=== PATIENT | male | born 1975 | race Caucasian/White ===

== ENCOUNTER 2019-01-02 16:19 | Inpatient (IN) | payer MEDICAID ==
[~2019-01-02] VITALS: Ht 165.1 cm; Wt 76.4 kg
[~2019-01-02 16:19] MED LIST: ATIVAN2 MG PO; NICODERM C1 PATCH .2 TRANSDERM; PROAIR HFA8.5 GM INH
[2019-01-02 16:54] LABS: BASOPHILS 0.2 % (0-2); EOSINOPHILS 1.1 % (0-7); HEMATOCRIT 42.9 % (42.0-54.0); HEMOGLOBIN 15.9 g/dL (13.5-17.5); IMMATURE GRANULOCYTES 0.2 % (0-5); LYMPHOCYTES 40.5 % (15-50); MCH 35.1 pg (26.0-34.0); MCHC 37.1 g/dL (31.0-37.0); MCV 94.7 fL (80.0-100.0); MEAN PLATELET VOLUME 9.1 fL (7.4-10.4); MONOCYTES 13.1 % (2-11); NEUTROPHILS 44.9 % (40-80); PLATELET COUNT 113 10x3/uL (130-400); RBC 4.53 10x6/uL (4.20-6.10); RDW 12.4 % (11.5-14.5); WBC 4.4 10x3/uL (4.8-10.8)
[2019-01-02 17:11] LABS: INR 1.04 (0.85-1.17); PROTIME 13.1 SECONDS (11.6-15.0)
[2019-01-02 17:15] VITALS: BP 145/96
--- NOTE | 2019-01-02 17:16 | NUR ---
"MY WHOLE BODY HURTS"
[2019-01-02 17:19] LABS: ALKALINE PHOSPHATASE 73 U/L (46-116); ALT (SGPT) 307 U/L (10-68); BILIRUBIN - TOTAL 0.33 mg/dL (0.2-1.3); CALC OSMOLALITY 286 mosm/kg (275-300); CALCIUM 8.2 mg/dL (8.5-10.1); CARBON DIOXIDE 27.9 mmol/L (21.0-32.0); CHLORIDE - SERUM 105 mmol/L (98-107); CREATININE - SERUM 0.9 mg/dL (0.6-1.3); GLUCOSE 145 mg/dL (74-106); POTASSIUM - SERUM 3.7 mmol/L (3.5-5.1); PROTEIN - SERUM 7.8 g/dL (6.4-8.2); SODIUM 143 mmol/L (136-145); UREA NITROGEN 9 mg/dL (7-18); eGFR NON AFRICAN AMERICAN > 90 mL/min (90-120)
[2019-01-02 17:26] LABS: APPEARANCE CLEAR (CLEAR); BILIRUBIN NEGATIVE (NEGATIVE); COLOR STRAW (YELLOW); GLUCOSE 50 mg/dL (NEGATIVE); KETONE NEGATIVE (NEGATIVE); NITRITE NEGATIVE (NEGATIVE); PROTEIN NEGATIVE (NEGATIVE); SPECIFIC GRAVITY 1.015 (1.005-1.020); UROBILINOGEN NORMAL (NORMAL)
[2019-01-02 17:32] LABS: UDS - AMPHET NEGATIVE QUAL (NEGATIVE); UDS - BARB NEGATIVE QUAL (NEGATIVE); UDS - BENZO NEGATIVE QUAL (NEGATIVE); UDS - COCAINE NEGATIVE QUAL (NEGATIVE); UDS - OPIATE NEGATIVE QUAL (NEGATIVE); UDS - PCP NEGATIVE QUAL (NEGATIVE); UDS - THC NEGATIVE QUAL (NEGATIVE)
[2019-01-02 17:42] LABS: CREATINE KINASE 504 UL (21-232); LIPASE 753 U/L (73-393); MAGNESIUM - SERUM 2.2 mg/dL (1.8-2.4); PRO BNP 11 pg/mL (0-125); THYROID STIMULATING HORMONE 0.52 uIU/mL (0.36-3.74)
[2019-01-02 17:43] LABS: TROPONIN-I < 0.017 ng/mL (0.000-0.060)
[2019-01-02 17:56] VITALS: BP 138/90
--- NOTE | 2019-01-02 17:57 | NUR ---
TREMORS RESOLVED. PT RESTING COMFORTABLY IN BED. CONT TO C/O "WHOLE BODY PAIN"
[2019-01-02 18:22] LABS: CKMB 3.1 U/L (0.0-3.6)
[2019-01-02 18:49] VITALS: BP 147/86
--- NOTE | 2019-01-02 19:09 | NUR ---
BS REPORT TO WILLIAM ROSE AND WILLIAM POON BY SBAR FORMAT
[2019-01-02 23:16] VITALS: BP 156/106; Ht 165.1 cm; Wt 76.4 kg
[2019-01-02 23:39] LABS: CKMB 2.3 U/L (0.0-3.6); CREATINE KINASE 412 UL (21-232)
[2019-01-02 23:40] LABS: TROPONIN-I < 0.017 ng/mL (0.000-0.060)
[2019-01-03 04:30] VITALS: BP 127/84
[2019-01-03 05:19] LABS: BASOPHILS 0.3 % (0-2); EOSINOPHILS 1.5 % (0-7); HEMATOCRIT 39.2 % (42.0-54.0); IMMATURE GRANULOCYTES 0.3 % (0-5); LYMPHOCYTES 44.3 % (15-50); MCH 34.4 pg (26.0-34.0); MCHC 35.7 g/dL (31.0-37.0); MCV 96.3 fL (80.0-100.0); MEAN PLATELET VOLUME 9.5 fL (7.4-10.4); MONOCYTES 13.9 % (2-11); NEUTROPHILS 39.7 % (40-80); PLATELET COUNT 94 10x3/uL (130-400); RBC 4.07 10x6/uL (4.20-6.10); RDW 12.6 % (11.5-14.5)
[2019-01-03 05:22] LABS: WBC 3.2 10x3/uL (4.8-10.8)
[2019-01-03 05:44] LABS: PLATELET ESTIMATE DECREASED
[2019-01-03 06:09] LABS: ALBUMIN 3.4 g/dL (3.4-5.0); ALKALINE PHOSPHATASE 47 U/L (46-116); ALT (SGPT) 254 U/L (10-68); BILIRUBIN - TOTAL 0.56 mg/dL (0.2-1.3); CALC OSMOLALITY 285 mosm/kg (275-300); CALCIUM 7.2 mg/dL (8.5-10.1); CARBON DIOXIDE 26.8 mmol/L (21.0-32.0); CHLORIDE - SERUM 107 mmol/L (98-107); CKMB 1.6 U/L (0.0-3.6); CREATINE KINASE 355 UL (21-232); CREATININE - SERUM 0.7 mg/dL (0.6-1.3); GLUCOSE 118 mg/dL (74-106); LIPASE 454 U/L (73-393); MAGNESIUM - SERUM 2.4 mg/dL (1.8-2.4); PHOSPHOROUS 3.5 mg/dL (2.5-4.9); POTASSIUM - SERUM 3.5 mmol/L (3.5-5.1); PROTEIN - SERUM 6.7 g/dL (6.4-8.2); SODIUM 144 mmol/L (136-145); UREA NITROGEN 7 mg/dL (7-18); eGFR NON AFRICAN AMERICAN > 90 mL/min (90-120)
[2019-01-03 06:10] LABS: TROPONIN-I < 0.017 ng/mL (0.000-0.060)
--- NOTE | 2019-01-03 06:55 | NUR ---
REPORT RECEIVED. ALERT ABLE TO VOICE NEEDS. HE DOES HAVE SOME SHAKING NOTED ON AND OFF IN HIS HANDS. IV SITE IS CLEAR BUT POSITIONAL. BBS CLEAR. ABLE TO AMBULATE WITH ASSIST TO THE BATHROOM.
[2019-01-03 07:50] VITALS: BP 150/91
--- NOTE | 2019-01-03 12:15 | MORECARE ---
CASE MANAGEMENT DISCHARGE SUMMARY PATIENT: JR BAUM UNIT: [id number] ADM DATE: 01/02/19 AGE: 43 : 75 SEX: M ROOM/BED: D.2110 AUTHOR: PIA MI PHYSICIAN: REFERRING PHYSICIAN: RAMA ANNA MD DATE OF SERVICE: 01/03/19 Discharge Plan Patient Name: JR BAUM [facility] [facility] 1975 Planned Disposition: Other Type of Facility Anticipated Discharge Date: 01/04/19 Discharge Date: Expected LOS: 2 Initial Reviewer: [email or web address] Initial Review Date: 01/03/2019 Generated: 01/03/19 1:15 pm DCPIA - Discharge Planning Initial Assessment Updated by [id number]: Mitul Laguerre on 01/03/19 12:11 pm * Is the patient Alert and Oriented? Yes * How many steps to enter\exit or inside your home? 2--I * PCP DR. EBER FISHER * Pharmacy [facility] * Preadmission Environment Home with Family * ADLs Independent * Equipment None * Other Equipment NO MEDICAL EQUIPMENT PROVIDER PREFERENCE * List name and contact numbers for known caregivers / representatives who currently or will assist patient after discharge: CRICKET ARREDONDONATALIA, FRIEND, * Verbal permission to speak to the caregivers and representatives has been obtained from the patient. Yes * Community resources currently utilized None * Please name any agencies selected above. NONE * Additional services required to return to the preadmission environment? No * Can the patient safely return to the preadmission environment? Yes * Has this patient been hospitalized within the prior 30 days at any hospital? No Patient Name: JR BAUM Page [id number] at 1215 All edits/amendments must be made on the electronic document DICTATION DATE: 01/03/19 1215 FACING SLITTER: CHIVO 01/03/19 1215 RPT#: [id number] DC DATE: STATUS: ADM IN [facility] [address] [place] [address] END OF REPORT
[2019-01-03 12:20] VITALS: BP 144/81
[2019-01-03 12:22] LABS: CKMB 1.8 U/L (0.0-3.6); CREATINE KINASE 356 UL (21-232)
[2019-01-03 12:23] LABS: TROPONIN-I < 0.017 ng/mL (0.000-0.060)
--- NOTE | 2019-01-03 12:32 | MORECARE ---
CASE MANAGEMENT DISCHARGE SUMMARY PATIENT: JR BAUM UNIT: [id number] ADM DATE: 01/02/19 AGE: 43 : 75 SEX: M ROOM/BED: D.2110 AUTHOR: SHMUEL,DOC PHYSICIAN: REFERRING PHYSICIAN: RAMA ANNA MD DATE OF SERVICE: 01/03/19 Discharge Plan Patient Name: JR BAUM Facility: [facility]:[place] : 1975 Planned Disposition: Other Type of Facility Anticipated Discharge Date: 01/04/19 Discharge Date: Expected LOS: 2 Initial Reviewer: [email or web address] Initial Review Date: 01/03/2019 Generated: 01/03/19 1:32 pm Comments DCP- Discharge Planning Updated by [id number]: Mitul Laguerre on 01/03/19 11:[address] Patient Name: JR BAUM Admission Status: ER Accout number: [id number] Admission Date: 01-02-2019 : 1975 Admission Diagnosis: Attending: RAMA EVANGELISTA Current LOS: 1 Anticipated DC Date: 01-04-2019 Planned Disposition: Other Type of Facility Primary Insurance: MEDICAID [place] PENDING PLANNED EXTERNAL PROVIDER: [facility] Discharge Planning Comments: CM RECEIVED ORDER FOR ALCOHOL INTOXICATION. CM SPOKE TO BEDSIDE NURSE WHO INFORMED CM THAT PT HAS BEEN ACCEPTED AND BED HOLDING AT [facility] IN [place], THE NIGHT NURSE HAD PROVIDED THE DAY SHIFT NURSE WITH A STICKY NOTE WITH CONTACT NUMBERS FOR [facility]. CM SPOKE TO JAMES PRATER WHO INFORMED CM THAT PT IS NOT READY TO DISCHARGE TODAY. CM MET WITH PT IN ROOM TO DISCUSS DISCHARGE PLANNING AND NEEDS. PT REPORTS LIVING AT HOME INDEPENDENTLY WITH HIS OLDER BROTHER. PT HAS NO MEDICAL EQUIPMENT AND NO OUTSIDE SERVICES ASSISTING IN THE HOME. CM DISCUSSED AVAILABILITY OF HOME HEALTH, REHAB SERVICES AND MEDICAL EQUIPMENT. PT DENIES DISCHARGE NEEDS EXCEPT WANTING TO STOP DRINKING ALCOHOL. PT REPORTS DRINKING 4- 40 OUNCE BEERS DAILY WITH SHOT OF VODKA BETWEEN BEERS. PT REPORTS HE DRANK UNTIL COMING TO HOSPITAL BUT HE WAS NOT ABLE TO DRINK MUCH BECAUSE HE FELT SICK. PT HAS BEEN DRINKING FOR YEARS AND WAS ABLE TO QUIT ABOUT 2 YEARS AGO FOR ABOUT 6 MONTHS. PT WOULD LIKE TO ENTER TREATMENT BUT DOES NOT REMEMBER SETTING UP ANY REHAB LAST NIGHT AND HAS NOT TALKED TO ANYONE AT [facility]. PT PROVIDED PERMISSION TO DISCUSS HIS CARE WITH [facility] AND PROVIDE THEM WITH ANY INFORMATION NEEDED TO GET HIM INTO THE REHAB. PT REPORTS HE HAS SOMEONE THAT CAN DRIVE HIM TO [place] FOR REHAB AT DISCHARGE. CM DISCUSSED AVAILABILITY OF REHABS IN [place] AND [facility] OUT[facility]IENT SUPPORT GROUPS AND COUNSELING. CM PROVIDED ALL INFORMATION IN WRITING AND ENCOURAGED PT TO CALL [facility] TO REQUEST TREATMENT THERE ALSO. CM CALLED [facility], , SPOKE TO ALLISON, PROVIDED PT'S INFORMATION. ALLISON REPORTS HE HAS TO CHECK PT'S "INSURANCE" AND MAKE SURE IT BOLIVAR PAY FOR REHAB SERVICES AND CALL CM BACK. CM WAITING ADMISSION DETERMINATION FROM [facility]. PT HAS BEEN INSTRUCTED TO CALL [facility] AND OTHER PROVIDERS HE MAY BE INTERESTED IN FOR ALCOHOL ADDICTION TREATMENT SERVICES. Network Security Architect: Mitul Laguerre DCPIA - Discharge Planning Initial Assessment Updated by [id number]: Mitul Laguerre on 01/03/19 12:11 pm * Is the patient Alert and Oriented? Yes * How many steps to enter\\exit or inside your home? 2--I * PCP DR. EBER FISHER * Pharmacy [facility] ON [facility] * Preadmission Environment Home with Family * ADLs Independent * Equipment None * Other Equipment NO MEDICAL EQUIPMENT PROVIDER PREFERENCE * List name and contact numbers for known caregivers / representatives who currently or will assist patient after discharge: CRICKET ARREDONDONATALIA, FRIEND, * Verbal permission to speak to the caregivers and representatives has been obtained from the patient. Yes * Community resources currently utilized None * Please name any agencies selected above. NONE * Additional services required to return to the preadmission environment? No * Can the patient safely return to the preadmission environment? Yes * Has this patient been hospitalized within the prior 30 days at any hospital? No Last DP export: 01/03/19 11:15 a Patient Name: JR BAUM Page [id number] at 1232 All edits/amendments must be made on the electronic document DICTATION DATE: 01/03/19 1232 TECHNICAL SPECIALIST CYTOLOGY: DM 01/03/19 1232 RPT#: [id number] DC DATE: STATUS: ADM IN [facility] [address] [place] [address] END OF REPORT
[2019-01-03 15:38] VITALS: BP 126/78
--- NOTE | 2019-01-03 17:13 | NUR ---
HE REQUEST REGULAR FOOD FOR SUPPER AND HAS HAD NO N/V NOTED. DIET WAS ADVANCED. HE HAS HAD LIBRIUM AND PRN ATIVAN FOR HIS SHAKING ON AND OFF. HE HAS BEEN COOPERATIVE WITH NO AGGRESSION NOTED
--- NOTE | 2019-01-03 19:17 | NUR ---
PT IN BED RESTING QUIETLY. EVEN AND UNLABORED RESPIRATIONS NOTED AT THIS TIME.
[2019-01-03 20:00] VITALS: BP 124/70
[2019-01-04] VITALS: BP 124/69
[2019-01-04 04:30] VITALS: BP 133/84
[2019-01-04 04:34] LABS: BASOPHILS 0.3 % (0-2); HEMATOCRIT 39.3 % (42.0-54.0); HEMOGLOBIN 14.2 g/dL (13.5-17.5); IMMATURE GRANULOCYTES 0.3 % (0-5); LYMPHOCYTES 35.2 % (15-50); MCH 34.5 pg (26.0-34.0); MCHC 36.1 g/dL (31.0-37.0); MCV 95.4 fL (80.0-100.0); MEAN PLATELET VOLUME 9.3 fL (7.4-10.4); MONOCYTES 11.5 % (2-11); NEUTROPHILS 51.7 % (40-80); PLATELET COUNT 88 10x3/uL (130-400); RBC 4.12 10x6/uL (4.20-6.10); RDW 12.2 % (11.5-14.5); WBC 3.9 10x3/uL (4.8-10.8)
[2019-01-04 04:53] LABS: AMYLASE - SERUM 50 U/L (25-115); CALC OSMOLALITY 276 mosm/kg (275-300); CALCIUM 7.6 mg/dL (8.5-10.1); CARBON DIOXIDE 26.8 mmol/L (21.0-32.0); CHLORIDE - SERUM 105 mmol/L (98-107); CREATININE - SERUM 0.6 mg/dL (0.6-1.3); GLUCOSE 112 mg/dL (74-106); LIPASE 331 U/L (73-393); MAGNESIUM - SERUM 2.5 mg/dL (1.8-2.4); PHOSPHOROUS 2.9 mg/dL (2.5-4.9); POTASSIUM - SERUM 3.6 mmol/L (3.5-5.1); SODIUM 139 mmol/L (136-145); UREA NITROGEN 7 mg/dL (7-18); eGFR NON AFRICAN AMERICAN > 90 mL/min (90-120)
--- NOTE | 2019-01-04 07:23 | NUR ---
PT AWAKE AND ORIENTED, SLIGHT TREMMOR NOTED. PT C/O HAVING A ROUGH NIGHT, NIGHT NURSE REPORTS PT HAS BEEN ASLEEP ALL NIGHT, WHENEVER HE HAD ENTERED THE ROOM WHICH WAS FREQUENTLY. PT STATES HE'S NOT REALLY WANTING TO GO TO [place] FOR THEIR NEW VISION PROGRAM, BUT THINK HE NEEDS TO SPEND ANOTHER NIGHT HERE TO FINISH DETOXING AND THEN WANTS TO GO HOME. INFORMED PT HE WOULD HAVE TO SPEAK TO THE DR ABOUT IT TODAY. NO SIGNS/SYMPTOMS OF ACUTE DISTRESS NOTED AT THIS TIME, BREATHS EVEN/REGULAR. CL IN REACH, SRX2.
[2019-01-04 08:10] VITALS: BP 133/88
--- NOTE | 2019-01-04 11:21 | NUR ---
PT BELIEVES HE'S BEING DISCHARGED TODAY, INFORMED HIM IT WOULDN'T BE UNTIL TOMORROW PER DRS NOTE. PT TOOK A SHOWER, HE THEN REFUSED TO PUT BACK ON TELEMTRY.
[2019-01-04 12:15] VITALS: BP 126/80
[2019-01-04 15:24] VITALS: BP 132/79
--- NOTE | 2019-01-04 16:58 | NUR ---
PT AWAKE AND ORIENTED, REPORTS NO SHAKES AT THIS TIME. IS READY TO GO HOME TOMORROW, REPORTS FEELING MUCH BETTER. NO FAMILY PRESENT AT THIS TIME. CL IN REACH, SRX2.
--- NOTE | 2019-01-04 18:33 | NUR ---
PT ASLEEP WHEN I WENT IN, WOKE EASILY TO VOICE STIMULATION. NO COMPLAINTS/CONCERNS OR QUESTIONS TO VOICE AT THIS TIME, REPORTS NO TREMMORS OR ILL FEALINGS, JUST STATES HE'S TIRED. CL IN REACH,SRX2.
--- NOTE | 2019-01-04 20:00 | NUR ---
INITIAL ROUNDS AND ASSESSMENT COMPLETED. PT VERY NERVOUS/TREMULOUS. LAST DRINK WAS ABOUT 36 HOURS AGO PER PATIENT. BANANA BAG INFUSING TO LEFT A/C AT 125ML/HR. NONLABORED RESPIRATIONS ON ROOM AIR. SPOKE WITH PATIENT ON PLANS TO GIVE HIM MEDS TO HELP HIM BE CALMER. CALL LIGHT IN REACH. MONITOR AND CPOC.
[2019-01-04 20:27] VITALS: BP 114/58
[2019-01-05 04:00] VITALS: BP 144/70
[2019-01-05 05:09] LABS: BASOPHILS 0.3 % (0-2); EOSINOPHILS 1.9 % (0-7); HEMATOCRIT 39.6 % (42.0-54.0); HEMOGLOBIN 14.1 g/dL (13.5-17.5); IMMATURE GRANULOCYTES 0.3 % (0-5); LYMPHOCYTES 35.5 % (15-50); MCHC 35.6 g/dL (31.0-37.0); MCV 95.4 fL (80.0-100.0); MEAN PLATELET VOLUME 9.7 fL (7.4-10.4); MONOCYTES 13.1 % (2-11); NEUTROPHILS 48.9 % (40-80); PLATELET COUNT 108 10x3/uL (130-400); RBC 4.15 10x6/uL (4.20-6.10); RDW 12.5 % (11.5-14.5); WBC 3.7 10x3/uL (4.8-10.8)
[2019-01-05 05:24] LABS: AMYLASE - SERUM 48 U/L (25-115); CALC OSMOLALITY 282 mosm/kg (275-300); CARBON DIOXIDE 27.2 mmol/L (21.0-32.0); CHLORIDE - SERUM 107 mmol/L (98-107); CREATININE - SERUM 0.7 mg/dL (0.6-1.3); GLUCOSE 115 mg/dL (74-106); LIPASE 267 U/L (73-393); MAGNESIUM - SERUM 2.5 mg/dL (1.8-2.4); POTASSIUM - SERUM 3.6 mmol/L (3.5-5.1); SODIUM 142 mmol/L (136-145); eGFR NON AFRICAN AMERICAN > 90 mL/min (90-120)
[2019-01-05 05:26] LABS: PHOSPHOROUS 3.7 mg/dL (2.5-4.9); UREA NITROGEN 9 mg/dL (7-18)
[2019-01-05 08:09] VITALS: BP 131/88
--- NOTE | 2019-01-05 09:31 | NUR ---
PT AWAKE AND ALERT, STATES HE'LL BE GOING HOME TODAY. NO COMPLAINTS, CONCERNS, QUESTIONS AT THIS TIME. CL IN REACH, SRX2.
[2019-01-05 11:56] VITALS: BP 121/67
--- NOTE | 2019-01-05 13:00 | NUR ---
I have reviewed this patient and I concur with the Shift Assessment completed by the Licensed Practical Nurse today this shift.
--- NOTE | 2019-01-05 15:42 | NUR ---
PT AMBULATED OUT VIA SELF. REFUSED WHEELCHAIR. NO COMPLAINTS/CONCERNS/QUESTIONS. PT STATES THANK YOU FOR ALL THE GREAT CARE.
--- NOTE | 2019-01-06 09:21 | MORECARE ---
CASE MANAGEMENT DISCHARGE SUMMARY PATIENT: JR BAUM UNIT: [id number] ADM DATE: 01/03/19 AGE: 43 : 75 SEX: M ROOM/BED: D.2110 AUTHOR: SHMUEL,DOC PHYSICIAN: REFERRING PHYSICIAN: RAMA ANNA MD DATE OF SERVICE: 01/06/19 Discharge Plan Patient Name: JR BAUM Facility: [facility]:[place] : 1975 Planned Disposition: Other Type of Facility Anticipated Discharge Date: 01/04/19 Discharge Date: 01/05/2019 Expected LOS: 1 Initial Reviewer: [email or web address] Initial Review Date: 01/03/2019 Generated: 01/06/19 10:21 am Comments DCP- Discharge Planning Updated by [id number]: Mitul Laguerre on 01/06/19 8:[address] Patient Name: JR BAUM Encounter No: [id number] : 1975 Primary Insurance: MEDICAID [place] PENDING Anticipated DC Date: 01-04-2019 Planned Disposition: HOME DCP follow-up note: CM REVIEWED CHART, PT DISCHARGED HOME 01-05-19 TO FOLLOW UP WITH [facility] FOR POSSIBLE ALCOHOL ABUSE TREATMENT SERVICES. TALI Hayes DCP- Discharge Planning Updated by [id number]: Mitul Laguerre on 01/03/19 11:[address] Patient Name: JR BAUM Admission Status: ER Accout number: [id number] Admission Date: 01-02-2019 : 1975 Admission Diagnosis: Attending: RAMA EVANGELISTA Current LOS: 1 Anticipated DC Date: 01-04-2019 Planned Disposition: Other Type of Facility Primary Insurance: MEDICAID [place] PENDING PLANNED EXTERNAL PROVIDER: [facility] [[email or web address]] Discharge Planning Comments: CM RECEIVED ORDER FOR ALCOHOL INTOXICATION. CM SPOKE TO BEDSIDE NURSE WHO INFORMED CM THAT PT HAS BEEN ACCEPTED AND BED HOLDING AT [facility] IN [place], THE NIGHT NURSE HAD PROVIDED THE DAY SHIFT NURSE WITH A STICKY NOTE WITH CONTACT NUMBERS FOR [facility]. CM SPOKE TO JAMES PRATER WHO INFORMED CM THAT PT IS NOT READY TO DISCHARGE TODAY. CM MET WITH PT IN ROOM TO DISCUSS DISCHARGE PLANNING AND NEEDS. PT REPORTS LIVING AT HOME INDEPENDENTLY WITH HIS OLDER BROTHER. PT HAS NO MEDICAL EQUIPMENT AND NO OUTSIDE SERVICES ASSISTING IN THE HOME. CM DISCUSSED AVAILABILITY OF HOME HEALTH, REHAB SERVICES AND MEDICAL EQUIPMENT. PT DENIES DISCHARGE NEEDS EXCEPT WANTING TO STOP DRINKING ALCOHOL. PT REPORTS DRINKING 4- 40 OUNCE BEERS DAILY WITH SHOT OF VODKA BETWEEN BEERS. PT REPORTS HE DRANK UNTIL COMING TO HOSPITAL BUT HE WAS NOT ABLE TO DRINK MUCH BECAUSE HE FELT SICK. PT HAS BEEN DRINKING FOR YEARS AND WAS ABLE TO QUIT ABOUT 2 YEARS AGO FOR ABOUT 6 MONTHS. PT WOULD LIKE TO ENTER TREATMENT BUT DOES NOT REMEMBER SETTING UP ANY REHAB LAST NIGHT AND HAS NOT TALKED TO ANYONE AT [facility]. PT PROVIDED PERMISSION TO DISCUSS HIS CARE WITH [facility] AND PROVIDE THEM WITH ANY INFORMATION NEEDED TO GET HIM INTO THE REHAB. PT REPORTS HE HAS SOMEONE THAT CAN DRIVE HIM TO [place] FOR REHAB AT DISCHARGE. CM DISCUSSED AVAILABILITY OF REHABS IN [place] AND [facility] SUPPORT GROUPS AND COUNSELING. CM PROVIDED ALL INFORMATION IN WRITING AND ENCOURAGED PT TO CALL [facility] TO REQUEST TREATMENT THERE ALSO. [facility], , SPOKE TO ALLISON, PROVIDED PT'S INFORMATION. ALLISON REPORTS HE HAS TO CHECK PT'S "INSURANCE" AND MAKE SURE IT BOLIVAR PAY FOR REHAB SERVICES AND CALL CM BACK. CM WAITING ADMISSION DETERMINATION FROM [facility]. PT HAS BEEN INSTRUCTED TO CALL [facility] AND OTHER PROVIDERS HE MAY BE INTERESTED IN FOR ALCOHOL ADDICTION TREATMENT SERVICES. Manager Safe: Mitul Laguerre DCPIA - Discharge Planning Initial Assessment Updated by [id number]: Mitul Laguerre on 01/03/19 12:11 pm * Is the patient Alert and Oriented? Yes * How many steps to enter\\exit or inside your home? 2-0 -I * PCP DR. EBER FISHER * Pharmacy [facility] [address] * Preadmission Environment Home with Family * ADLs Independent * Equipment None * Other Equipment NO MEDICAL EQUIPMENT PROVIDER PREFERENCE * List name and contact numbers for known caregivers / representatives who currently or will assist patient after discharge: CRICKET CASTILLO, FRIEND, * Verbal permission to speak to the caregivers and representatives has been obtained from the patient. Yes * Community resources currently utilized None * Please name any agencies selected above. NONE * Additional services required to return to the preadmission environment? No * Can the patient safely return to the preadmission environment? Yes * Has this patient been hospitalized within the prior 30 days at any hospital? No Last DP export: 01/03/19 11:32 a Patient Name: JR BAUM Page [phone] at 0921 All edits/amendments must be made on the electronic document DICTATION DATE: 01/06/19920 SEMI CONDUCTOR ASSEMBLER: CHIVO 01/06/19920 RPT#: [id number] DC DATE:01/05/19 STATUS: DIS IN [facility] [address] [place] [address] END OF REPORT
== END 2019-01-05 15:43 | disposition home or self-care (01) | DRG 439 ==
LOC: D.ER 16:19 → OBSVTIME 19:09 → D.M2 19:09
PROVIDERS: Family Medicine; ADMIT Family Medicine; ATTEND Family Medicine
DX: K85.20 Alcohol induced acute pancreatitis without necrosis or infection (principal); F10.239 Alcohol dependence with withdrawal, unspecified; F17.213 Nicotine dependence, cigarettes, with withdrawal; E86.0 Dehydration; J45.909 Unspecified asthma, uncomplicated; R00.0 Tachycardia, unspecified

== ENCOUNTER 2020-10-25 06:45 | Inpatient (IN) | payer OTHER ==
[~2020-10-25] VITALS: Ht 165.1 cm; Wt 84.1 kg
[2020-10-25] VITALS (15 sets, daily range): BP systolic 119–170; BP diastolic 71–96
[2020-10-25 07:14] LABS: BASOPHILS 0.2 % (0-2); EOSINOPHILS 0.5 % (0-7); HEMATOCRIT 45.7 % (42.0-54.0); HEMOGLOBIN 16.4 g/dL (13.5-17.5); IMMATURE GRANULOCYTES 0.3 % (0-5); LYMPHOCYTE ABS# 1.15 10x3/uL (1.32-3.57); LYMPHOCYTES 17.9 % (15-50); MCH 34.4 pg (26.0-34.0); MCHC 35.9 g/dL (31.0-37.0); MCV 95.8 fL (80.0-100.0); MEAN PLATELET VOLUME 9.4 fL (7.4-10.4); MONOCYTES 5.9 % (2-11); NEUTROPHIL ABS# 4.83 10x3/uL (1.78-5.38); NEUTROPHILS 75.2 % (40-80); RBC 4.77 10x6/uL (4.20-6.10); RDW 11.9 % (11.5-14.5); WBC 6.4 10x3/uL (4.8-10.8)
[2020-10-25 07:16] LABS: CALC OSMOLALITY 282 mosm/kg (275-300); CALCIUM 9.3 mg/dL (8.5-10.1); CARBON DIOXIDE 21.2 mmol/L (21.0-32.0); CHLORIDE - SERUM 103 mmol/L (98-107); CREATININE - SERUM 0.9 mg/dL (0.6-1.3); GLUCOSE 160 mg/dL (74-106); POTASSIUM - SERUM 3.8 mmol/L (3.5-5.1); SODIUM 141 mmol/L (136-145); UREA NITROGEN 10 mg/dL (7-18); eGFR NON AFRICAN AMERICAN > 90 mL/min (90-120)
[2020-10-25 07:21] LABS: ALKALINE PHOSPHATASE 50 U/L (30-120); ALT (SGPT) 117 U/L (10-68); MAGNESIUM - SERUM 1.8 mg/dL (1.8-2.4); PROTEIN - SERUM 7.7 g/dL (6.4-8.2)
[2020-10-25 07:28] LABS: PLATELET COUNT 207 10x3/uL (130-400)
[2020-10-25 09:22] LABS: BILIRUBIN NEGATIVE (NEGATIVE); KETONE SMALL mg/dL (NEGATIVE); NITRITE NEGATIVE (NEGATIVE); UROBILINOGEN NORMAL mg/dL (< 2)
[2020-10-25 09:27] LABS: UDS - AMPHET NEGATIVE QUAL (NEGATIVE); UDS - BARB NEGATIVE QUAL (NEGATIVE); UDS - BENZO NEGATIVE QUAL (NEGATIVE); UDS - COCAINE NEGATIVE QUAL (NEGATIVE); UDS - OPIATE NEGATIVE QUAL (NEGATIVE); UDS - PCP NEGATIVE QUAL (NEGATIVE); UDS - THC NEGATIVE QUAL (NEGATIVE)
[2020-10-25 13:04] LABS: INR 1.06 (0.85-1.17); PROTIME 12.8 SECONDS (11.6-15.0)
[2020-10-26] VITALS (12 sets, daily range): BP systolic 115–154; BP diastolic 65–107; Ht 165.1 cm; Wt 84.1 kg
--- NOTE | 2020-10-26 01:23 | NUR ---
RESTING COMFORTABLY.AWAKENS EASILY TO VERBAL STIMULI.SLIGHT TREMORS COMPLAINT PRIOR TO BEDTIME LIBRIUM DOSE. IMPROVED WITH MEDS
[2020-10-26 06:04] LABS: BASOPHILS 0.4 % (0-2); EOSINOPHILS 1.9 % (0-7); HEMATOCRIT 45.7 % (42.0-54.0); HEMOGLOBIN 16.1 g/dL (13.5-17.5); LYMPHOCYTES 22.2 % (15-50); MCH 34.3 pg (26.0-34.0); MCHC 35.2 g/dL (31.0-37.0); MCV 97.3 fL (80.0-100.0); MEAN PLATELET VOLUME 7.5 fL (7.4-10.4); MONOCYTES 8.8 % (2-11); NEUTROPHILS 66.7 % (40-80); PLATELET COUNT 222 10x3/uL (130-400); RBC 4.69 10x6/uL (4.20-6.10); RDW 12.5 % (11.5-14.5); WBC 6.2 10x3/uL (4.8-10.8)
[2020-10-26 06:45] LABS: ALBUMIN 3.4 g/dL (3.4-5.0); ALKALINE PHOSPHATASE 47 U/L (30-120); ALT (SGPT) 92 U/L (10-68); BILIRUBIN - TOTAL 1.47 mg/dL (0.2-1.3); CALC OSMOLALITY 274 mosm/kg (275-300); CALCIUM 8.7 mg/dL (8.5-10.1); CARBON DIOXIDE 23.6 mmol/L (21.0-32.0); CHLORIDE - SERUM 103 mmol/L (98-107); CREATININE - SERUM 0.8 mg/dL (0.6-1.3); GLUCOSE 135 mg/dL (74-106); SODIUM 137 mmol/L (136-145); UREA NITROGEN 9 mg/dL (7-18); eGFR NON AFRICAN AMERICAN > 90 mL/min (90-120)
--- NOTE | 2020-10-26 07:50 | NUR ---
PATIENT UP TO BATHROOM FOR SPONGE BATH, SHAVE PER SELF. PAPER SCRUBS GIVEN FOR COMFORT. PATIENT IS ALERT AND ORIENTED. NO EVIDENCE OF TREMORS. CLEAR LIQUID DIET GIVEN.
--- NOTE | 2020-10-26 10:46 | NUR ---
DISCUSSED REHAB PLANS FOLLOWING HOSPITAL DISCHARGE. PATIENT STATES HE WILL BE GOING TO [id number] AND SHE WILL HELP HIM LOCATE A REHAB AND WILL HELP HIS STAY OFF ALCOHOL. STATES "SHE'S REALLY STRICT ON THAT".
--- NOTE | 2020-10-26 11:39 | NUR ---
PATIENT LYING QUIETLY IN BED. NO C/O AGITATION. NO TREMORS SEEN. VSS.
--- NOTE | 2020-10-26 12:22 | NUR ---
REPORT GIVEN TO WILLIAM CALLOWAY, MED/SURG.
--- NOTE | 2020-10-26 13:16 | NUR ---
ADMITTED TO FLOOR. NO COMPLAINTS AT PRESENT. STATES IN PAIN BUT IS RUNNING AROUND ROOM AT PRESENT. ATTACHED TO MONITOR SHOWING SR PECK 77. CALL LIGHT IN REACH.
--- NOTE | 2020-10-26 13:28 | NUR ---
REFUSING SCDS DUE TO CONSTANTLY BEING UP AND AROUND IN ROOM. CURRENTLY ON LOVENOX
--- NOTE | 2020-10-26 19:45 | NUR ---
RECEIVED BEDSIDE REPORT. PT LAYING IN BED A&O X4. PIV TO LEFT HAND PATENT AND INFUSING, NO REDNESS OR SWELLING. TELEMETRY IN PLACE, SB 48. EDUCATED PT ON CL AND NEEDS, VERBALIZED UNDERSTANDING. BED LOW, CL IN REACH.
[2020-10-27] VITALS: BP 117/77
[2020-10-27 04:00] VITALS: BP 149/86
[2020-10-27 06:06] LABS: BASOPHILS 0.5 % (0-2); EOSINOPHILS 2.1 % (0-7); HEMATOCRIT 46.6 % (42.0-54.0); HEMOGLOBIN 16.6 g/dL (13.5-17.5); LYMPHOCYTES 33.5 % (15-50); MCH 34.6 pg (26.0-34.0); MCHC 35.7 g/dL (31.0-37.0); MEAN PLATELET VOLUME 7.8 fL (7.4-10.4); MONOCYTES 7.5 % (2-11); NEUTROPHILS 56.4 % (40-80); PLATELET COUNT 203 10x3/uL (130-400); RBC 4.81 10x6/uL (4.20-6.10); WBC 5.3 10x3/uL (4.8-10.8)
[2020-10-27 06:21] LABS: ALBUMIN 3.7 g/dL (3.4-5.0); ALKALINE PHOSPHATASE 52 U/L (30-120); ALT (SGPT) 102 U/L (10-68); BILIRUBIN - TOTAL 1.47 mg/dL (0.2-1.3); CALC OSMOLALITY 275 mosm/kg (275-300); CALCIUM 8.6 mg/dL (8.5-10.1); CARBON DIOXIDE 23.2 mmol/L (21.0-32.0); CHLORIDE - SERUM 102 mmol/L (98-107); CREATININE - SERUM 0.8 mg/dL (0.6-1.3); GLUCOSE 118 mg/dL (74-106); POTASSIUM - SERUM 3.8 mmol/L (3.5-5.1); PROTEIN - SERUM 7.5 g/dL (6.4-8.2); SODIUM 138 mmol/L (136-145); UREA NITROGEN 11 mg/dL (7-18); eGFR NON AFRICAN AMERICAN > 90 mL/min (90-120)
--- NOTE | 2020-10-27 07:46 | NUR ---
SITTING UP IN BED WITH EYES OPEN, ALERT AND ORIENTED. STATES HE IS FEELING MUCH BETTER AND WOULD LIKE TO TALK TO THE DR ABOUT NOT CONTINUING TO TAKE THE LIBRIUM AND LOVENOX DUE TO HE IS NOT SHAKING ANYMORE AND IS GETTING UP AND MOVING AROUND THE ROOM FREQUENTLY. REPORTS HE HAS ALREADY GOTTEN UP AND TAKEN A SHOWER THIS MORNING. IV LOCATED TO LEFT HAND CURRENTLY RUNNING MVI @ 25ML. NO CURRENT S/S OF DISTRESS AT THIS TIME, DENIES CURRENT NEEDS, WILL CONT TO MONITOR.
[2020-10-27 08:39] VITALS: BP 133/88
[2020-10-27 12:34] VITALS: BP 142/92
[2020-10-27] MEDS ORDERED: ATIVAN1 MG PO (15:27)
--- NOTE | 2020-10-27 17:41 | NUR ---
DC`D VIA WHEELCHAIR AND HOSPITAL STAFF, NO CONCERNS MENTIONED.
== END 2020-10-27 17:42 | disposition home or self-care (01) | DRG 897 ==
LOC: D.ER 06:45 → D.EDHOLD 17:33 → D.M2 17:33 → D.MS 17:33 → D.EDHOLD 17:59 → D.MS 10-26 11:34
PROVIDERS: Family Medicine; ADMIT Family Medicine Adult Medicine; ATTEND Family Medicine Adult Medicine
DX: F10.231 Alcohol dependence with withdrawal delirium (principal); J45.909 Unspecified asthma, uncomplicated; R74.01 Elevation of levels of liver transaminase levels

== ENCOUNTER 2020-11-03 20:21 | Emergency (ER) | payer OTHER ==
[~2020-11-03] VITALS: Ht 165.1 cm; Wt 81.8 kg
[~2020-11-03 20:21] MED LIST changes: +ATIVAN1 MG PO
[2020-11-03 20:22] VITALS: Ht 165.1 cm; Wt 81.8 kg
[2020-11-03] MEDS ORDERED: LIBRIUM 10 MG C10 MG PO (20:27)
[2020-11-04 00:46] VITALS: BP 119/56
== END 2020-11-04 00:46 | disposition home or self-care (01) ==
LOC: D.ER 20:21
DX: S93.401A Sprain of unspecified ligament of right ankle, initial encounter (principal); M25.571 Pain in right ankle and joints of right foot; J45.909 Unspecified asthma, uncomplicated; W19.XXXA Unspecified fall, initial encounter; Y93.9 Activity, unspecified; Y92.9 Unspecified place or not applicable

== ENCOUNTER 2020-11-07 16:48 | Emergency (ER) | payer OTHER ==
[~2020-11-07] VITALS: Ht 165.1 cm; Wt 77.3 kg
[~2020-11-07 16:48] MED LIST changes: +LIBRIUM 10 MG C10 MG PO
[2020-11-07 16:53] VITALS: BP 121/62; Ht 165.1 cm; Wt 77.3 kg
[2020-11-07] MEDS ORDERED: TORADOL10 MG PO (21:29)
== END 2020-11-07 21:56 | disposition home or self-care (01) ==
LOC: D.ER 16:48
DX: S93.401A Sprain of unspecified ligament of right ankle, initial encounter (principal); X58.XXXA Exposure to other specified factors, initial encounter

== ENCOUNTER 2020-12-01 11:37 | Inpatient (IN) | payer OTHER ==
[~2020-12-01] VITALS: Ht 165.1 cm; Wt 77.6 kg
[~2020-12-01 11:37] MED LIST changes: +TORADOL10 MG PO
[2020-12-01 12:00] LABS: BASOPHILS 0.7 % (0-2); EOSINOPHILS 0.8 % (0-7); HEMATOCRIT 44.6 % (42.0-54.0); HEMOGLOBIN 15.6 g/dL (13.5-17.5); LYMPHOCYTES 47.5 % (15-50); MCV 97.3 fL (80.0-100.0); MEAN PLATELET VOLUME 7.1 fL (7.4-10.4); MONOCYTES 7.1 % (2-11); NEUTROPHILS 43.9 % (40-80); PLATELET COUNT 199 10x3/uL (130-400); RBC 4.58 10x6/uL (4.20-6.10); RDW 12.9 % (11.5-14.5); WBC 5.2 10x3/uL (4.8-10.8)
[2020-12-01 12:12] LABS: CALC OSMOLALITY 290 mosm/kg (275-300); CALCIUM 8.5 mg/dL (8.5-10.1); CARBON DIOXIDE 26.2 mmol/L (21.0-32.0); CHLORIDE - SERUM 106 mmol/L (98-107); CREATININE - SERUM 0.7 mg/dL (0.6-1.3); GLUCOSE 138 mg/dL (74-106); POTASSIUM - SERUM 3.5 mmol/L (3.5-5.1); SODIUM 145 mmol/L (136-145); UREA NITROGEN 13 mg/dL (7-18); eGFR NON AFRICAN AMERICAN > 90 mL/min (90-120)
[2020-12-01 12:26] LABS: ALBUMIN 3.9 g/dL (3.4-5.0); ALKALINE PHOSPHATASE 48 U/L (30-120); ALT (SGPT) 76 U/L (10-68); AMYLASE - SERUM 41 U/L (25-115); BILIRUBIN - TOTAL 0.55 mg/dL (0.2-1.3); LIPASE 116 U/L (73-393); PROTEIN - SERUM 7.4 g/dL (6.4-8.2)
[2020-12-01 12:27] LABS: TROPONIN-I < 0.017 ng/mL (0.000-0.060)
[2020-12-01 12:59] LABS: BILIRUBIN NEGATIVE (NEGATIVE); KETONE NEGATIVE mg/dL (< 1+); NITRITE NEGATIVE (NEGATIVE); UROBILINOGEN NORMAL mg/dL (< 2)
[2020-12-01 13:06] LABS: UDS - AMPHET NEGATIVE QUAL (NEGATIVE); UDS - BARB NEGATIVE QUAL (NEGATIVE); UDS - BENZO NEGATIVE QUAL (NEGATIVE); UDS - COCAINE NEGATIVE QUAL (NEGATIVE); UDS - OPIATE NEGATIVE QUAL (NEGATIVE); UDS - PCP NEGATIVE QUAL (NEGATIVE); UDS - THC NEGATIVE QUAL (NEGATIVE)
[2020-12-01 15:18] LABS: INR 1.01 (0.85-1.17); PROTIME 12.3 SECONDS (11.6-15.0)
--- NOTE | 2020-12-01 19:16 | NUR ---
PT RESTING WITH EYES CLOSED, RR EVEN AND UNLABORED, VSS. PT AWAKES TO VERBAL STIMULI, DENIES NEEDS. CALL LIGHT IN REACH.
[2020-12-01 19:19] VITALS: BP 105/67
[2020-12-01 20:00] VITALS: BP 105/66
--- NOTE | 2020-12-01 20:18 | NUR ---
PT IV THIAMINE INFUSION FINISHED.
[2020-12-01 21:00] VITALS: BP 105/61
[2020-12-01 22:00] VITALS: BP 110/67
--- NOTE | 2020-12-01 22:24 | NUR ---
PT TIP BANDING MACHINE OPERATOR LIGHT, PT ASSISTED UP TO BEDSIDE TO USE URINAL. PT VOIDED 400ML DARK YELLOW URINE. PT ALSO C/O SHAKINESS AND REQUESTING MEDICAITON FOR IT. SEE EMAR
[2020-12-01 23:00] VITALS: BP 137/80
--- NOTE | 2020-12-01 23:26 | NUR ---
PT SUMMER COUNSELOR LIGHT REQUESTING SOMETHING TO EAT. PT GIVEN SANDWICH BOX AND WATER. PT DENIES FURTHER NEEDS. CALL LIGHT IN REACH.
[2020-12-02] VITALS (22 sets, daily range): BP systolic 97–170; BP diastolic 50–85
--- NOTE | 2020-12-02 02:57 | NUR ---
APPROX 500 ML DARK YELLOW URINE EMPTIED FROM PT URINAL. PT DENIES FURTHER NEEDS CALL LIGHT IN REACH.
--- NOTE | 2020-12-02 04:14 | NUR ---
PT GIVEN ICE WATER TO DRINK AND HEAD OF BED ADJUSTED TO LEVEL OF COMFORT. DENIES FURTHER NEEDS. CALL LIGHT IN REACH.
[2020-12-02 04:52] LABS: INR 1.08 (0.85-1.17)
[2020-12-02 04:53] LABS: BASOPHILS 0.6 % (0-2); EOSINOPHILS 1.1 % (0-7); HEMATOCRIT 44.1 % (42.0-54.0); HEMOGLOBIN 15.3 g/dL (13.5-17.5); LYMPHOCYTES 24.8 % (15-50); MCH 34.3 pg (26.0-34.0); MCHC 34.7 g/dL (31.0-37.0); MCV 98.7 fL (80.0-100.0); MEAN PLATELET VOLUME 7.3 fL (7.4-10.4); MONOCYTES 5.9 % (2-11); NEUTROPHILS 67.6 % (40-80); PLATELET COUNT 167 10x3/uL (130-400); RBC 4.47 10x6/uL (4.20-6.10); RDW 12.9 % (11.5-14.5); WBC 5.3 10x3/uL (4.8-10.8)
[2020-12-02 05:04] LABS: ALBUMIN 3.6 g/dL (3.4-5.0); ALKALINE PHOSPHATASE 48 U/L (30-120); ALT (SGPT) 67 U/L (10-68); BILIRUBIN - TOTAL 0.76 mg/dL (0.2-1.3); CALC OSMOLALITY 277 mosm/kg (275-300); CALCIUM 7.7 mg/dL (8.5-10.1); CARBON DIOXIDE 25.7 mmol/L (21.0-32.0); CHLORIDE - SERUM 105 mmol/L (98-107); CREATININE - SERUM 0.8 mg/dL (0.6-1.3); GLUCOSE 110 mg/dL (74-106); MAGNESIUM - SERUM 2.1 mg/dL (1.8-2.4); PHOSPHOROUS 2.7 mg/dL (2.5-4.9); POTASSIUM - SERUM 3.7 mmol/L (3.5-5.1); PROTEIN - SERUM 7.1 g/dL (6.4-8.2); SODIUM 140 mmol/L (136-145); eGFR NON AFRICAN AMERICAN > 90 mL/min (90-120)
[2020-12-02 05:08] LABS: UREA NITROGEN 7 mg/dL (7-18)
--- NOTE | 2020-12-02 06:18 | NUR ---
450 ML DARK YELLOW URINE EMPTIED FROM URINAL. PT DENIES NEEDS. CALL LIGHT IN REACH.
--- NOTE | 2020-12-02 12:00 | NUR ---
RELIEVING PRIMARY RN FOR LUNCH BREAK AT THIS TIME.
--- NOTE | 2020-12-02 19:15 | NUR ---
450ML DARK YELLOW URINE EMPTIED FROM URINAL. PT AWAKES TO VERBAL STIMULI, DENIES FUTHER NEEDS AT THIS TIME. CALL LIGHT IN REACH.
--- NOTE | 2020-12-02 22:25 | NUR ---
PT REQUESTING ATIVAN FOR TREMORS. SEE EMAR
--- NOTE | 2020-12-02 23:00 | NUR ---
PT BROUGHT TO FLOOR VIA WHEELCHAIR, AOX4. AMBULATED TO BED WITHOUT DIFFICULTY. DENIES PAIN OR NEEDS AT THIS TIME. IV RIGHT HAND INFUSING NS @ 125. CL IN REACH
[2020-12-03] VITALS: BP 121/65
[2020-12-03 03:37] VITALS: Ht 165.1 cm; Wt 77.6 kg
[2020-12-03 04:00] VITALS: BP 134/72
[2020-12-03 05:24] LABS: BASOPHILS 0.5 % (0-2); EOSINOPHILS 1.6 % (0-7); HEMOGLOBIN 15.1 g/dL (13.5-17.5); LYMPHOCYTES 25.2 % (15-50); MCH 34.6 pg (26.0-34.0); MEAN PLATELET VOLUME 7.4 fL (7.4-10.4); MONOCYTES 9.9 % (2-11); NEUTROPHILS 62.8 % (40-80); PLATELET COUNT 149 10x3/uL (130-400); RBC 4.36 10x6/uL (4.20-6.10); RDW 12.8 % (11.5-14.5); WBC 4.8 10x3/uL (4.8-10.8)
[2020-12-03 05:43] LABS: MCV 96.3 fL (80.0-100.0)
[2020-12-03 05:49] LABS: INR 1.16 (0.85-1.17); PROTIME 13.8 SECONDS (11.6-15.0)
[2020-12-03 06:00] LABS: ALBUMIN 3.3 g/dL (3.4-5.0); ALKALINE PHOSPHATASE 39 U/L (30-120); ALT (SGPT) 55 U/L (10-68); BILIRUBIN - TOTAL 1.53 mg/dL (0.2-1.3); CALC OSMOLALITY 278 mosm/kg (275-300); CARBON DIOXIDE 22.4 mmol/L (21.0-32.0); CHLORIDE - SERUM 105 mmol/L (98-107); CREATININE - SERUM 0.7 mg/dL (0.6-1.3); GLUCOSE 112 mg/dL (74-106); MAGNESIUM - SERUM 2.2 mg/dL (1.8-2.4); PHOSPHOROUS 2.8 mg/dL (2.5-4.9); POTASSIUM - SERUM 3.7 mmol/L (3.5-5.1); PROTEIN - SERUM 6.5 g/dL (6.4-8.2); SODIUM 140 mmol/L (136-145); eGFR NON AFRICAN AMERICAN > 90 mL/min (90-120)
[2020-12-03 06:05] LABS: UREA NITROGEN 10 mg/dL (7-18)
--- NOTE | 2020-12-03 07:46 | NUR ---
ALERT AND ORIENTED. ASSESSMENT COMPLETE. REQUESTED AND GIVEN PRN ATIVAN. DENIES FURTHER NEEDS. BED LOW. CALL CUEVAS AND PERSONAL ITEMS IN REACH. WILL CONTINUE TO MONITOR.
[2020-12-03 09:04] VITALS: BP 132/79
--- NOTE | 2020-12-03 09:15 | NUR ---
PATIENT UNHOOKED FROM IV AND TELE AND IV WRAPPED FOR SHOWER.
--- NOTE | 2020-12-03 09:18 | NUR ---
NURSE MESSAGED NOTED TO PLACE PATIENT ON TELE. PATIENT ALREADY ON TELE. ONLY REMOVED FOR SHOWER THIS AM. HAS BEEN ON TELE RUNNING SINUS RYTHING TO SINUS TACH.
--- NOTE | 2020-12-03 10:00 | NUR ---
RESTING IN BED. DENIES NEEDS. WILL CONTINUE TO MONITOR.
--- NOTE | 2020-12-03 12:01 | NUR ---
CALL TO FAMILY PER PATIENT REQUEST. CRICKET PAZ [phone]. FAMILY INFORMED OF PATIENTS LOCATION AND STATUS PER PATIENT REQUEST. PATIENT STATES."HE IS DOING BAD." MEDS PER MAR ORDERED
--- NOTE | 2020-12-03 12:31 | NUR ---
SITTING UP IN BED EATING LUNCH. DENIES NEEDS. WILL CONTINUE TO MONITOR.
[2020-12-03 12:45] VITALS: BP 159/109
[2020-12-03 13:07] VITALS: BP 117/63
--- NOTE | 2020-12-03 13:39 | NUR ---
SLEEPING. CALL CUEVAS IN REACH.
[2020-12-03 20:00] VITALS: BP 149/78
--- NOTE | 2020-12-03 20:00 | NUR ---
PT SITTING UP IN BED WITHOUT DISTRESS, AOX4. PT STATES HE JUST WOKE UP AND SLEPT ALL DAY. STATES THAT THE LIBRIUM HE WAS GIVEN EALIER IN THE DAY IS MAKING HIS BRAIN FEEL FUZZY. STATES THAT IT MAKES HIM SLEEP TOO MUCH AND DOES NOT LIKE THE WAY HIS HEAD FEELS. STATES THE ATIVAN DOES NOT DO THAT. PT REQUESTING TO NOT TAKE LIRBIUM ANYMORE. EDUCATED PT ON WHAT LIBRIUM DOES AND WHY HE HAS BEEN ORDERED TO TAKE IT BUT THAT THIS NURSE WOULD CALL NURSE PRACITIONER AND SPEAK WITH HIM ABOUT IT. CALLED ALLAN ALEXANDRE APN ABOUT LIBRIUM DOSE AND PT NOT WANTING TO TAKE SO MUCH LIBRIUM. ORDERS PER ALLAN TO CHANGE LIBRIUM BACK TO 25MG Q8H.
[2020-12-04] VITALS: BP 96/58
[2020-12-04 04:00] VITALS: BP 128/82
--- NOTE | 2020-12-04 08:00 | NUR ---
ALERT AND ORIENTED. ASSESSMENT COMPLETE. PATIENT REQUESTING SMOOTHIE. SPOKE WITH KATTY IN DIETARY WHO STATES "WE DONT USE THE SOIL TECHNOLOGIST IN [place] ON THE WEEKEND SO WE CAN'T MAKE A SMOOTHIE." WILL SPEAK WITH SIGNAL INSPECTOR. PATIENT DENIES FURTHER NEEDS. WILL CONTINUE TO MONITOR.
--- NOTE | 2020-12-04 08:49 | NUR ---
SPOKE WITH [facility] REHAB NURSE, WHO STATES WILL PLACE ORDER FOR PATIENT TO HAVE SMOOTHIE AND THAT KITCHEN HAS NO REASON NOT TO MAKE SMOOTHIE ON THE WEEKEND FOR PATIENT.
[2020-12-04 08:58] VITALS: BP 119/77
[2020-12-04 09:05] LABS: INR 1.12 (0.85-1.17); PROTIME 13.4 SECONDS (11.6-15.0)
[2020-12-04 09:20] LABS: BASOPHILS 0.5 % (0-2); EOSINOPHILS 1.7 % (0-7); HEMATOCRIT 47.7 % (42.0-54.0); HEMOGLOBIN 16.9 g/dL (13.5-17.5); LYMPHOCYTES 24.7 % (15-50); MCH 34.8 pg (26.0-34.0); MCHC 35.5 g/dL (31.0-37.0); MCV 97.9 fL (80.0-100.0); MONOCYTES 7.7 % (2-11); NEUTROPHILS 65.4 % (40-80); PLATELET COUNT 169 10x3/uL (130-400); RBC 4.88 10x6/uL (4.20-6.10)
[2020-12-04 09:34] LABS: ALKALINE PHOSPHATASE 54 U/L (30-120); BILIRUBIN - TOTAL 1.24 mg/dL (0.2-1.3); CALC OSMOLALITY 278 mosm/kg (275-300); CALCIUM 8.9 mg/dL (8.5-10.1); CARBON DIOXIDE 27.1 mmol/L (21.0-32.0); CHLORIDE - SERUM 102 mmol/L (98-107); CREATININE - SERUM 0.8 mg/dL (0.6-1.3); GLUCOSE 99 mg/dL (74-106); MAGNESIUM - SERUM 2.2 mg/dL (1.8-2.4); PHOSPHOROUS 2.6 mg/dL (2.5-4.9); SODIUM 141 mmol/L (136-145); UREA NITROGEN 8 mg/dL (7-18); eGFR NON AFRICAN AMERICAN > 90 mL/min (90-120)
[2020-12-04 09:50] LABS: ALT (SGPT) 83 U/L (10-68); POTASSIUM - SERUM 3.1 mmol/L (3.5-5.1)
--- NOTE | 2020-12-04 12:45 | NUR ---
RESTING IN BED. DENIES NEEDS. CALL CUEVAS IN REACH. WILL CONTINUE TO MONITOR.
[2020-12-04 13:38] VITALS: BP 135/81
--- NOTE | 2020-12-04 14:02 | NUR ---
PATIENT TOOK SHOWER PER REQUEST. LINENS CHANGED. FLOORS CLEANED BY HOUSEKEEPING PER REQUEST. DENIES FURTHER NEEDS. WILL CONTINUE TO MONITOR.
--- NOTE | 2020-12-04 16:56 | NUR ---
PATIENT SLEEPING. CALL CUEVAS IN REACH.
[2020-12-04 17:47] VITALS: BP 121/73
--- NOTE | 2020-12-04 18:44 | NUR ---
PATIENT RESTING IN BED. REQUESTED AND GIVEN PRN ATIVAN. DENIES FURTHER NEEDS. CALL CUEVAS IN REACH.
--- NOTE | 2020-12-04 19:00 | NUR ---
BEDSIDE REPORT RECEIVED AND CARE OF PT ASSUMED. PT LYING ON RIGHT SIDE WITH EYES CLOSED. IV TO LEFT HAND PATENT WITH NS INFUSING AT 125 ML/HR. TELEMETRY IN PLACE PER ORDER. SCD'S IN PLACE ON BLE. WILL MONITOR FOR NEEDS.
--- NOTE | 2020-12-04 20:37 | NUR ---
HS MEDICATIONS GIVEN TO INCLUDE ATIVAN PER REQUEST FOR TREMORS. WILL CONTINUE TO MONITOR CLOSELY.
--- NOTE | 2020-12-05 00:08 | NUR ---
GAVE ATIVAN PER REQUEST FOR ANXIETY / TREMORS. WILL CONTINUE TO MONITOR CLOSELY FOR NEEDS.
--- NOTE | 2020-12-05 02:23 | NUR ---
PT C/O IV HURTING. REMOVED WITH CATHETER TIP INTACT. RE-SITED IV TO RIGHT AC USING 20 GUAGE CATHETER IN ONE STICK. IV FLUIDS RE-STARTED.
--- NOTE | 2020-12-05 02:24 | NUR ---
PT UP DOING SPONGE BATH AND ORAL CARE.
--- NOTE | 2020-12-05 03:30 | NUR ---
PT STILL AMBULATING AROUND ROOM....SHAVING HEAD AT THIS TIME.
[2020-12-05 05:46] LABS: BASOPHILS 0.3 % (0-2); EOSINOPHILS 1.9 % (0-7); HEMATOCRIT 44.3 % (42.0-54.0); HEMOGLOBIN 15.5 g/dL (13.5-17.5); LYMPHOCYTES 21.1 % (15-50); MCH 34.1 pg (26.0-34.0); MCHC 34.9 g/dL (31.0-37.0); MCV 97.7 fL (80.0-100.0); MEAN PLATELET VOLUME 7.8 fL (7.4-10.4); MONOCYTES 7.4 % (2-11); NEUTROPHILS 69.3 % (40-80); PLATELET COUNT 163 10x3/uL (130-400); RBC 4.54 10x6/uL (4.20-6.10); RDW 12.8 % (11.5-14.5); WBC 6.4 10x3/uL (4.8-10.8)
[2020-12-05 05:50] LABS: INR 1.15 (0.85-1.17); PROTIME 13.7 SECONDS (11.6-15.0)
[2020-12-05 05:54] LABS: ALBUMIN 3.6 g/dL (3.4-5.0); ALKALINE PHOSPHATASE 49 U/L (30-120); ALT (SGPT) 79 U/L (10-68); BILIRUBIN - TOTAL 0.92 mg/dL (0.2-1.3); CALC OSMOLALITY 276 mosm/kg (275-300); CALCIUM 8.6 mg/dL (8.5-10.1); CHLORIDE - SERUM 103 mmol/L (98-107); CREATININE - SERUM 0.9 mg/dL (0.6-1.3); GLUCOSE 89 mg/dL (74-106); MAGNESIUM - SERUM 1.9 mg/dL (1.8-2.4); POTASSIUM - SERUM 3.1 mmol/L (3.5-5.1); PROTEIN - SERUM 7.1 g/dL (6.4-8.2); SODIUM 140 mmol/L (136-145); UREA NITROGEN 9 mg/dL (7-18); eGFR NON AFRICAN AMERICAN > 90 mL/min (90-120)
[2020-12-05 05:58] LABS: PHOSPHOROUS 3.6 mg/dL (2.5-4.9)
[2020-12-05 08:00] VITALS: BP 138/91
[2020-12-05 12:29] VITALS: BP 116/66
[2020-12-05 16:15] VITALS: BP 108/70
--- NOTE | 2020-12-05 19:00 | NUR ---
BEDSIDE REPORT RECEIVED AND CARE OF PT ASSUMED. PT LYING IN LOW CHARLES'S POSITION WATCHING TV. IV TO RIGHT AC PATENT WITH NS INFUSING AT 125 ML/HR. TELEMETRY IN PLACE PER ORDER. WILL MONITOR FOR NEEDS.
--- NOTE | 2020-12-05 20:05 | NUR ---
HS MEDICATIONS GIVEN TO INCLUDE ATIVAN 1 MG IVP PER REQUEST FOR ANXIETY/ TREMORS. WILL CONTINUE TO MONITOR FOR NEEDS.
--- NOTE | 2020-12-05 20:30 | NUR ---
GAVE X2 ORANGE SHEBERT FOR HS SNACK. WILL CONTINUE TO MONITOR FOR NEEDS.
--- NOTE | 2020-12-06 04:24 | NUR ---
PT WANTS TO SHOWER...SALINE LOCKED IV. CALLED EMAIL MARKETING EXECUTIVE TO INFORM THAT PT WOULD BE OFF FOR A WHILE.
[2020-12-06 05:50] LABS: BASOPHILS 0.2 % (0-2); EOSINOPHILS 2.6 % (0-7); HEMOGLOBIN 16.3 g/dL (13.5-17.5); LYMPHOCYTES 29.8 % (15-50); MCH 34.6 pg (26.0-34.0); MCHC 35.5 g/dL (31.0-37.0); MCV 97.3 fL (80.0-100.0); MEAN PLATELET VOLUME 7.8 fL (7.4-10.4); MONOCYTES 7.2 % (2-11); NEUTROPHILS 60.2 % (40-80); PLATELET COUNT 173 10x3/uL (130-400); RBC 4.73 10x6/uL (4.20-6.10); RDW 12.8 % (11.5-14.5); WBC 6.1 10x3/uL (4.8-10.8)
[2020-12-06 05:59] LABS: ALBUMIN 3.9 g/dL (3.4-5.0); ALKALINE PHOSPHATASE 57 U/L (30-120); ALT (SGPT) 83 U/L (10-68); BILIRUBIN - TOTAL 0.74 mg/dL (0.2-1.3); CALC OSMOLALITY 277 mosm/kg (275-300); CALCIUM 8.9 mg/dL (8.5-10.1); CARBON DIOXIDE 27.4 mmol/L (21.0-32.0); CHLORIDE - SERUM 103 mmol/L (98-107); CREATININE - SERUM 0.7 mg/dL (0.6-1.3); GLUCOSE 113 mg/dL (74-106); MAGNESIUM - SERUM 1.9 mg/dL (1.8-2.4); PROTEIN - SERUM 7.7 g/dL (6.4-8.2); SODIUM 140 mmol/L (136-145); UREA NITROGEN 7 mg/dL (7-18); eGFR NON AFRICAN AMERICAN > 90 mL/min (90-120)
[2020-12-06 06:06] LABS: POTASSIUM - SERUM 3.6 mmol/L (3.5-5.1)
--- NOTE | 2020-12-06 07:21 | NUR ---
RECIEVED BEDSIDE REPORT. BED LOW POSITION, CALL LIGHT IN REACH. DENIES NEEDS AT THIS TIME. FREE FROM SIGNS OF DISTRESS. WILL CONTINUE TO MONITOR.
[2020-12-06 07:28] LABS: INR 1.04 (0.85-1.17); PROTIME 12.6 SECONDS (11.6-15.0)
[2020-12-06 10:27] VITALS: BP 132/78
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
--- NOTE | 2020-12-06 15:08 | NUR ---
DISCHARGE PAPERS COMPLETE. DENIES FURTHER QUESTIONS. IV CATH REMOVED, CATH TIP INTACT. GATHERED BELONGINGS LEFT UNIT VIA AMBULATORY WITH NURSE TO HOME.
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
== END 2020-12-06 15:09 | disposition home or self-care (01) | DRG 897 ==
LOC: D.ER 11:37 → D.MS 13:40 → D.EDHOLD 13:40 → D.MS 12-02 22:30
PROVIDERS: Family Medicine; ADMIT Emergency Medicine; ATTEND Emergency Medicine
DX: F10.231 Alcohol dependence with withdrawal delirium (principal); K76.0 Fatty (change of) liver, not elsewhere classified; I10 Essential (primary) hypertension; Y90.8 Blood alcohol level of 240 mg/100 ml or more; Z86.19 Personal history of other infectious and parasitic diseases